=== PATIENT | male | born 1955 | race Caucasian/White ===

== ENCOUNTER → 2021-07-12 | Outpatient (CLI) | payer MEDICARE, BC ==
--- NOTE | 2021-07-12 12:55 | RAD ---
EXAM: Abdominal aortic sonogram. HISTORY: Aneurysm screening. Hypertension. Cigarette smoking. TECHNIQUE: Sonographic imaging of the abdominal aorta was performed. COMPARISON: None. FINDINGS: The proximal abdominal aorta measures 2.5 cm in caliber. The mid abdominal aorta measures 1 .8 cm in caliber. The distal abdominal aorta measures 1.6 cm in caliber. The common iliac arteries me asure 1.0 cm on the right and 1.1 cm on the left. There is an asymmetric increased peak systolic [place] within the right common iliac artery measuring 195 cm/s. This suggests a component of stenosis. IMPRESSION: No sonographic evidence of abdominal aortic aneurysm. Electronically signed by: Keena Block MD (07/12/2021 12:53 PM) [id number]
== END ==
LOC: US 09:59
PROVIDERS: ATTEND Family Medicine
DX: Z00.00 Encounter for general adult medical examination without abnormal findings (principal)
CPT/HCPCS: 76770

== ENCOUNTER → 2022-04-08 | Outpatient (CLI) | payer MEDICARE, BC ==
--- NOTE | 2022-04-08 14:50 | RAD ---
Exam: US DPLX ARTR EXTREM LOWER BILAT History: Reason: PVD; LEG PAIN R>L / Spl. Instructions: / History: Comparison: None. Technique: Grayscale, color, and spectral Doppler ultrasound images of the lower extremity arteries. Findings: There is plaque throughout both lower extremities. Peak systolic velocities (cm/s) and waveforms in the lower extremities: Right: Common femoral artery: 137, biphasic Profunda femoris artery: 177, triphasic Proximal superficial femoral artery: 64, biphasic Mid superficial femoral artery: 59, biphasic Distal superficial femoral artery: 407, biphasic. There is a collateral vessel seen proximal to the s tenosis. There is monophasic waveform immediately distal to the stenosis. Popliteal artery: 30, biphasic Posterior tibial artery proximally: 60, biphasic, Peroneal artery: 33, biphasic Anterior tibial artery: 22, biphasic Posterior tibial artery distally: 37, biphasic Dorsalis pedis artery: 20, biphasic Left: Common femoral artery: 153, triphasic Profunda femoris artery: 150, biphasic Proximal superficial femoral artery: 138, biphasic Mid superficial femoral artery: 127, triphasic Distal superficial femoral artery: 120, biphasic. Collateral vessels are seen. Popliteal artery: 94, biphasic Posterior tibial artery proximally: 28, biphasic Peroneal artery: 51, biphasic Anterior tibial artery: 32, biphasic Posterior tibial artery distally: 38, triphasic Dorsalis pedis artery: 31, biphasic IMPRESSION: 1. High-grade stenosis in the right distal superficial femoral artery and milder stenosis in the righ t profunda femoris artery. There are collateral vessels seen proximal to the superficial femoral inga ry stenosis. 2. Mild stenosis in the left common femoral and profunda femoris arteries. There are collateral vesse ls seen at the superficial femoral artery. Electronically signed by: Yanet العلي MD (04/08/2022 2:48 PM) [id number]
== END ==
LOC: US 12:56
PROVIDERS: ATTEND Family Medicine
DX: I73.9 Peripheral vascular disease, unspecified (principal)
CPT/HCPCS: 93925